=== PATIENT | male | born 1960 | race African-American/Black ===

== ENCOUNTER 2018-07-17 05:21 | Inpatient (IN) | payer OTHER ==
[2018-07-16 09:01] VITALS: BMI 36.3
[2018-07-17] VITALS (18 sets, daily range): BP systolic 110–156; BP diastolic 68–89; PULSE 74–97; RESP 11–25; Ht 180.3 cm; Wt 122.2 kg
[~2018-07-17] VITALS: Ht 180.3 cm; Wt 122.2 kg
[2018-07-17] MEDS ORDERED: CEFAZOLIN 2 GM/50 ML (PMX) 50 ML IVPB ONE (07:00)
[2018-07-17] MEDS ORDERED: LACTATED RINGER'S 1,000 ML IV* SCH (07:00)
--- NOTE | 2018-07-17 07:02 | HPN ---
Date/Time of Note Date/Time of Note DATE: 07/17/18 TIME: 07:02 Interval H&P Admission Note Pt. seen H&P reviewed: No system changes MAGNOLIA BENNETT PA-C Jul 17, 2018 07:02
[2018-07-17] MEDS ORDERED: BUPR-165 PO (07:04)
[2018-07-17] MEDS ORDERED: AMLO-147 PO (07:04)
[2018-07-17] MEDS ORDERED: FAMO20TA18 PO (07:05)
[2018-07-17] MEDS ORDERED: ASPI325T30 PO (07:05)
[2018-07-17] MEDS ORDERED: FENTAnyl 50 MCG/ML VIAL ONE ×2 (07:07→09:29)
[2018-07-17] MEDS ORDERED: MIDAZOLAM 1 MG/ML 2 ML INJ ONE (07:07)
[2018-07-17] MEDS ORDERED: ROCURONIUM 50 MG INJ ONE ×2 (07:07→08:32)
[2018-07-17] MEDS ORDERED: SUCCINYLCHOLINE CHLORIDE 100 MG/5 ML SYG IV ONE (07:07)
[2018-07-17] MEDS ORDERED: CEFAZOLIN 1 GM INJ ONE (07:07)
[2018-07-17] MEDS ORDERED: PROPOFOL 20 ML ONE (07:07)
[2018-07-17] MEDS ORDERED: NEOSTIGMINE 3 MG/3 ML SYRINGE ONE (07:07)
[2018-07-17] MEDS ORDERED: GLYCOPYRROLATE 0.4 MG INJ ONE (07:07)
[2018-07-17] MEDS ORDERED: ONDANSETRON 4 MG INJ ONE (07:08)
[2018-07-17] MEDS ORDERED: METOCLOPRAMIDE 10 MG INJ ONE (07:08)
[2018-07-17] MEDS ORDERED: DEXAMETHASONE 4 MG/ML 5 ML INJ ONE (07:08)
[2018-07-17] MEDS ORDERED: BISACODYL 10 MG SUPP PR PRN (07:30)
[2018-07-17] MEDS ORDERED: DIPHENHYDRAMINE 25 MG CAP PO PRN (07:30)
[2018-07-17] MEDS ORDERED: AL HYDROX/MG HYDROX/SIMETH 30 ML CUP PO PRN (07:30)
[2018-07-17] MEDS ORDERED: CEPASTAT LOZENGE MT PRN (07:30)
[2018-07-17] MEDS ORDERED: HYDROmorphONE 0.5 MG/0.5 ML SYG IV PRN (07:30)
[2018-07-17] MEDS: CEFAZOLIN 1 GM/50 ML (PMX) 50 ML IVPB SCH ×3 (07:30→23:21)
[2018-07-17] MEDS ORDERED: ONDANSETRON 4 MG INJ IV PRN ×2 (07:30→08:30)
[2018-07-17] MEDS ORDERED: NALOXONE (0.4 MG/ML) INJ IV PRN (07:30)
[2018-07-17] MEDS ORDERED: DIPHENHYDRAMINE 50 MG INJ IV PRN ×2 (07:30→08:30)
[2018-07-17] MEDS ORDERED: CYCLOBENZAPRINE 10 MG TAB PO PRN (07:30)
[2018-07-17] MEDS ORDERED: ACETAMINOPHEN 325 MG TAB PO PRN (07:30)
[2018-07-17] MEDS ORDERED: POLYMYXIN/BACITRACIN 1L IRRIG ONE (07:33)
[2018-07-17] MEDS ORDERED: BUPIVACAINE 0.5%/EPI (SDV) 30 ML INJ ONE (07:33)
[2018-07-17] MEDS ORDERED: SURGIFOAM POWDER 1 GM KIT ONE (07:33)
[2018-07-17] MEDS ORDERED: THROMBIN 5000 UNIT VIAL ONE (07:33)
[2018-07-17] MEDS ORDERED: HEPARIN 1000 UNITS/ML 10 ML INJ ONE (07:46)
[2018-07-17] MEDS ORDERED: PHENYLephrine 10 MG INJ ONE (08:08)
--- NOTE | 2018-07-17 08:11 | PREAC ---
Date/Time of Note Date/Time of Note DATE: 07/17/18 TIME: 08:04 Anesthesia Eval and Record Evaluation Time Pre-Procedure Interview DATE: 07/17/18 TIME: 08:04 Age 58 Sex male NPO: 8 hrs Preoperative diagnosis lumbar radiculopathy Planned procedure lumbar discectomy L4/L5 Past Medical History Past Medical History: Includes Cardio: HTN, Dyslipidemia Endo: Other (Pre Diabetes) Neuro: Seizure disorder, Other (Migraine GARCIA) GI: GERD Psych: Depression Surgery & Anesthesia Issues No known issue Meds Anticoagulation: No Beta Chani within 24 hr: Yes Reported Medications Aspirin* (Aspirin*) 325 Mg Tablet, 325 MG PO DAILY, TAB 07/17/18 Famotidine* (Famotidine*) 20 Mg Tablet, 20 MG PO BID, #60 TAB 07/17/18 Amlodipine Besylate* (Amlodipine Besylate*) 10 Mg Tablet, 10 MG PO DAILY, #30 TAB 07/17/18 Bupropion Hcl* (Wellbutrin SR*) 150 Mg Tablet.sa, 150 MG PO BID, TAB.SA 07/17/18 Current Medications Lactated Ringer's 1,000 ml @ 0 mls/hr Q0M IV* ; Start 07/17/18 at 07:00; Stop 07/17/18 at 16:00 Potassium Chloride/Dextrose/ Sod Cl 1,000 ml @ 100 mls/hr Q10H IV ; Start 07/17/18 at 07:02 Acetaminophen/ Hydrocodone Bitart ([place] (10/325)) 1 tab Q4H PRN PO .PAIN 1-5; Start 07/18/18 at 09:30 Acetaminophen/ Hydrocodone Bitart ([place] (10/325)) 2 tab Q4H PRN PO .PAIN 6-10; Start 07/18/18 at 09:30 Hydromorphone HCl (Dilaudid) 0.2 mg Q1H PRN IV .BREAKTHROUGH PAIN; Start 07/17/18 at 07:30 Cefazolin Sodium 50 ml @ 100 mls/hr Q8H IVPB ; Start 07/17/18 at 07:30; Stop 07/17/18 at 23:59 Ondansetron HCl (Zofran Inj) 4 mg Q6H PRN IV NAUSEA/VOMITING; Start 07/17/18 at 07:30 Bisacodyl (Dulcolax Supp) 10 mg DAILY PRN [place] .CONSTIPATION; Start 07/17/18 at 07:30 Docusate Sodium (Colace) 100 mg BID PO ; Start 07/17/18 at 09:00 Al Hydrox/Mg Hydrox/Simethicone (Mag-Al Plus) 15 ml Q6H PRN PO . CONSTIPATION/DYSPEPSIA; Start 07/17/18 at 07:30 Acetaminophen (Tylenol Tab) 650 mg Q4H PRN PO GARCIA OR TEMP GREATER THAN 101.3F; Start 07/17/18 at 07:30 Cyclobenzaprine HCl (Flexeril) 10 mg TID PRN PO .MUSCLE SPASMS; Start 07/17/18 at 07:30 Phenol (Cepastat Lozenge) 1 lozenge PRN PRN MT .SORE THROAT; Start 07/17/18 at 07:30 Diphenhydramine HCl (Benadryl) 25 mg Q6H PRN PO .ITCHING; Start 07/17/18 at 07:30 Diphenhydramine HCl (Benadryl) 25 mg Q6H PRN IV .ITCHING; Start 07/17/18 at 07:30 Naloxone HCl (Narcan) 0.2 mg Q2M PRN IV .RR 8 BREATHS/MIN OR LESS; Start 07/17/18 at 07:30 Hydromorphone HCl (Dilaudid BIODIESEL PROCESS CONTROL TECHNICIAN) BIODIESEL PROCESS CONTROL TECHNICIAN to be started in PACU Q4PCA IV ; Start 07/17/18 at 07:30; Stop 07/18/18 at 10:00 Miscellaneous Information 1. Hold BIODIESEL PROCESS CONTROL TECHNICIAN at 1,000... BIODIESEL PROCESS CONTROL TECHNICIAN IV ; Start 07/17/18 at 07:30; Stop 07/18/18 at 10:00 Meds reviewed: Yes Allergies Coded Allergies: No Known Allergy (Unverified , 07/17/18) Allergies Reviewed: Yes Labs/Studies Labs Reviewed: Reviewed by anesthesiologist test: N/A Studies: ECG, CXR Pre-procedure Exam Airway: Adequate mouth opening, Adequate thyromental dist Mallampati: Mallampati I Teeth: Normal (partial removed) Lung: Normal Heart: Normal ASA Physical Status ASA physical status: 3 Emergency: None Planned Anesthetic General/MAC: ETT Planned Pain Management Local by surgeon Pre-operative Attestations Prior to commencing anesthesia and surgery, the patient was re-evaluated, there was verification of: *The patient's identity *The results of appropriate recent lab work and preoperative vital signs *The above evaluation not changing prior to induction *Anesthetic plan, risk benefits, alternative and complications discussed with patient/family; questions answered; patient/family understands, accepts and wishes to proceed. Nara Mckoy Jul 17, 2018 08:11
[2018-07-17] MEDS ORDERED: LABETALOL HCL 20MG INJ IV PRN (08:30)
[2018-07-17] MEDS ORDERED: HYDROmorphONE 1 MG/5 ML IV SYRINGE IV PRN (08:30)
[2018-07-17] MEDS ORDERED: MEPERIDINE 25 MG INJ IV PRN (08:30)
[2018-07-17] MEDS ORDERED: morphine (1 MG/ML) 10ML SYRINGE IV PRN (08:30)
[2018-07-17] MEDS ORDERED: METOCLOPRAMIDE 10 MG INJ IV PRN (08:30)
[2018-07-17] MEDS ORDERED: hydrALAzine 20 MG INJ IV PRN (08:30)
[2018-07-17] MEDS ORDERED: FENTAnyl 50 MCG/ML VIAL IV PRN (08:30)
[2018-07-17] MEDS ORDERED: OXYCODONE/ACETAMINOPHEN (5/325) TAB PO PRN (08:30)
[2018-07-17] MEDS ORDERED: HALOPERIDOL 5 MG INJ IV PRN (08:30)
[2018-07-17] MEDS ORDERED: LORAZEPAM 2 MG INJ IV PRN (08:30)
[2018-07-17] MEDS ORDERED: PROCHLORPERAZINE 10 MG INJ IV PRN (08:30)
[2018-07-17] MEDS ORDERED: BUPIVACAINE 0.25% (MPF) 30 ML INJ ONE (09:22)
--- NOTE | 2018-07-17 09:54 | SIPON ---
Date/Time of Note Date/Time of Note DATE: 07/17/18 TIME: 09:52 Operative Report Preoperative Diagnosis Lumbar stenosis Postoperative Diagnosis Lumbar stenosis Operation/Procedure Performed Lumbar decompression Surgeon see signature line residential real estate assistant Raven Munoz Anesthesia: general Estimated blood loss: 10 - 50 ml's Transfusion Required none Specimen L4-5 disc Grafts/Implants none Complications none JASON WU MD Jul 17, 2018 09:54
[2018-07-17] MEDS: HYDROmorphONE 0.2 MG/ML PCA IV SCH (10:27)
[2018-07-17] MEDS: DOCUSATE SODIUM 100 MG CAP PO SCH ×2 (10:32→21:18)
--- NOTE | 2018-07-17 12:59 | OPR ---
DATE OF OPERATION: 07/17/2018 PREOPERATIVE DIAGNOSES: 1. History of previous left L5-S1 microdiskectomy. 2. Body mass index 38. 3. 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 4. Right L4-5 disk extrusion. 5. Lumbar radiculopathy. POSTOPERATIVE DIAGNOSES: 1. History of previous left L5-S1 microdiskectomy. 2. Body mass index 38. 3. 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 4. Right L4-5 disk extrusion. 5. Lumbar radiculopathy. OPERATION PERFORMED: 1. Right L3-4 hemilaminotomy, partial medial facetectomy, and foraminotomy with removal of extraforaminal intraspinal cyst. 2. Right L4-5 hemilaminotomy, partial medial facetectomy, and foraminotomy with right L4-5 microdiskectomy. 3. Use of operative microscope. 4. Lateral localizing film x2. 5. Intraoperative neuromonitoring. PRIMARY SURGEON: Pa Stovall MD APPLE PEELER OPERATOR: Raven Munoz PA-C NEED FOR HUMIDIFIER MAINTENANCE WORKER: During this spinal surgical procedure, my pediatric physical therapy assistant was used to retract and protect the spinal nerves and dural sac. My pediatric physical therapy assistant also employed the suction catheters to evacuate blood from the surgical field to improve visualization of the neural structures. The pediatric physical therapy assistant was medically necessary to facilitate the completion of the surgery in a safe and expeditious manner. State of [place] regulations, as well as hospital bylaws, preclude the use of non-licensed health care personnel, such as operating room technicians, to perform these functions. FINDINGS: Neuromonitoring at the start of the case revealed right L3 amplitude down 40%, right L4 down 40%, right L5 down 30%, the end the case, nerve signals returned to normal. The patient had an extruded fragment at the L4-5 level, in addition to a chronic herniation with calcification. This resulted in stenosis. At L3-4 patient had thickening of ligamentum flavum with a interligamentum cyst which was intraspinal and extradural. ESTIMATED BLOOD LOSS: 50 mL. DRAINS: None. SPECIMENS: L4-5 disk spaces. COMPLICATIONS OF PROCEDURES: None. ANESTHESIOLOGIST: Ean. TYPE OF ANESTHESIA: General. INDICATIONS FOR PROCEDURE: This 58-year-old gentleman with right lumbar radiculopathy failed nonoperative measures, therefore I recommended that he undergo the above procedure. Preoperatively, we discussed risks, benefits, alternatives. He understood and wished to proceed. DESCRIPTION OF PROCEDURE IN DETAIL: The patient was identified in preoperative holding area, given Ancef antibiotic, taken to the operating room, where he was successfully placed under general anesthesia. SCDs were applied. Remote intraoperative neuromonitoring was performed by Dr. Guerrero from 0642 to 0945 hours to include SSEP, MEP, and EMG performed by [facility]. The patient was placed on the operating table in prone position over a Garland frame. All bony prominences were well padded. The back was then prepped and draped in usual fashion. Spinal needles were placed and lateral localizing films obtained to confirm the correct levels. Once this was confirmed, I injected the skin, subcutaneous tissue, and paraspinal musculature with 0.25% Marcaine and epinephrine. The patient's previous incision was more toward the left, rather than being on midline, and therefore, I elected to make a new incision over the L3-4 and L4-5 levels. I incised the skin down to the dorsal fascia. The patient had approximately 4 cm of adipose tissue to get to the spinous process. I then subperiosteally dissected the right L4 and L3 lamina. Leanna retractor was placed. Kerrison was placed under the L4 lamina. Repeat lateral films obtained to confirm the correct levels. Once this was confirmed, microscope was brought in. At L4-5 I used a high speed bur and Kerrison punch to perform a right hemilaminotomy and partial medial facetectomy. Ligamentum flavum was then sharply dissected. I then identified the traversing nerve root which my pediatric physical therapy assistant retracted. I then identified the extruded fragment. I made an incision and removed extruded fragment. The patient also had a calcified extrusion which was chronic. I used a Kerrison punch followed by down pushing curets to perform this diskectomy. I then entered the disk space and completed the diskectomy. I then turned my attention to the L3-4 level. Here a right-sided hemilaminotomy was performed. Ligamentum flavum was quite thick. There was a cyst within the ligamentum flavum. This was an intraspinal but extradurally located and I removed the cyst with the ligamentum flavum. Once this was done, I examined the annulus. Although there was a bulge there was no extrusion. Therefore, I elected not to perform a diskectomy. At this point, all nerve signals returned to normal. Hemostasis achieved with bipolar cautery and Surgifoam. Valsalva was performed and there was no leak of CSF. The wound was irrigated. I injected plain Marcaine. I then removed the retractors and closed the deep fascia with #1 Vicryl stitch. I closed subcutaneous tissue with a 2-0 Vicryl stitch. Microscope was taken off the field. A 4-0 Monocryl closure was then performed. Dermabond and sterile dressings were then applied. The patient was then awakened from anesthesia and taken to the recovery room in stable condition. Lap, sponge, and instrument counts were correct x2. There were no apparent complications during the procedure. The patient will be admitted [facility] for routine postoperative care to include pain, neurovasc checks, antibiotics, and physical therapy. Dictated By: PA CASTANEDA/COURT Conf#: [id number] DID#: [id number] [facility]
[2018-07-17] MEDS: D5W-0.45 NACL + KCL 20 MEQ 1,000 ML IV SCH ×2 (14:26→17:02)
--- NOTE | 2018-07-17 18:01 | PAC ---
Date/Time of Note Date/Time of Note DATE: 07/17/18 TIME: 18:00 Post-Anesthesia Notes Post-Anesthesia Note Last documented vital signs Vital Signs Date Temp Pulse Resp B/P (MAP) Pulse Ox O2 O2 Flow FiO2 Time Delivery Rate 07/17/18 Nasal 2.0 16:20 Cannula 07/17/18 98.3 11:39 07/17/18 82 11 136/71 97 10:51 (92) Activity: WNL Respiratory function: WNL Cardiovascular function: WNL Mental status: Baseline Pain reasonably controlled: Yes Hydration appropriate: Yes Nausea/Vomiting absent: Yes Comments patient doing well, d/c to floor Nara Mckoy Jul 17, 2018 18:01
--- NOTE | 2018-07-17 19:30 | CONS ---
DATE OF ADMISSION: 07/17/2018 DATE OF CONSULTATION: TYPE OF CONSULTATION: Medical. Thank you, Dr. Stovall, for asking me to participate in medical management of this patient. REASON FOR CONSULTATION: To manage the patient's hypertension, depression, migraine headaches. HISTORY OF PRESENT ILLNESS: This 58-year-old man is now postop a lumbar spine surgery by Dr. Jo combs. The patient was having right lumbar radiculopathy due to a previous injury at work. He was havi ng low back pain with radiation down his right leg with numbness. The patient underwent a right L3 t o L4 hemilaminotomy, partial medial facetectomy and foraminotomy with removal of extraforaminal intra spinal cyst. He also underwent a right L4 to L5 hemilaminotomy, partial medial facetectomy and harmeet inotomy with a right L4 to L5 microdiskectomy. The patient is doing well. He is awake and alert. H is back pain is under good control on current medication. The patient does have a history of hyperte nsion and did take his blood pressure medicine this morning preoperatively. PAST MEDICAL HISTORY: Remarkable for benign prostatic hypertrophy, depression, gastroesophageal refl ux disease, hypertension, migraine headaches, prediabetes. PAST SURGICAL HISTORY: Laminectomy and tonsillectomy. FAMILY HISTORY: Includes asthma, COPD, depression, type 2 diabetes mellitus, heart disease, high blo od pressure, hyperlipidemia and thyroid cancer. SOCIAL HISTORY: The patient has been smoking. He does drink alcohol. CURRENT MEDICATIONS: Includes the followin. Amlodipine 10 mg a day, which he took this morning. 2. Aspirin which he discontinued preoperatively. 3. Wellbutrin 150 mg twice a day. 4. Famotidine 20 mg twice a day. 5. Meloxicam as needed for pain which he discontinued preoperatively. PHYSICAL EXAMINATION: GENERAL: At this time reveals a well-developed man in no apparent distress. VITAL SIGNS: Temperature 98.3, pulse of 82, respirations 11, blood pressure 136/71, O2 saturation 97 % on 2-liter nasal cannula. HEENT: Head is normocephalic. Eyes: Extraocular muscles are intact. Nose and mouth are normal. NECK: Supple. No neck vein distention. LUNGS: Clear to auscultation. HEART: Regular rate, rhythm. No murmurs, gallops or rubs. ABDOMEN: Soft, nontender. No masses or megaly. EXTREMITIES: No peripheral edema. IMPRESSION: This patient is now postop a lumbar spine surgery. He is doing well. His vital signs a re stable and he is afebrile. He has no chest pain or shortness of breath. I will follow the patien t and manage his hypertension, depression and migraine headaches. PLAN: 1. Resume some routine medications. 2. Check labs in the morning. 3. Postop lumbar spine surgery protocol. 4. I will follow the patient along with you. Dictated By: AMPARO WAGNER MD ND/NTS Conf#: [id number] DID#: [id number] CC: JASON STOVALL MD; ROMINA DAVEY MD;*[facility]*
[2018-07-17] MEDS: BUPROPION (SR) 150 MG TAB PO SCH (21:18)
[2018-07-17] MEDS: FAMOTIDINE 20 MG TAB PO SCH (21:18)
[2018-07-18 01:36] VITALS: BP 133/80; PULSE 81; RESP 18
[2018-07-18] MEDS: D5W-0.45 NACL + KCL 20 MEQ 1,000 ML IV SCH ×2 (03:02→13:02)
[2018-07-18] MEDS: HYDROmorphONE 0.2 MG/ML PCA IV SCH (04:24)
[2018-07-18 07:17] VITALS: BP 157/99; RESP 18
[2018-07-18] MEDS: FAMOTIDINE 20 MG TAB PO SCH (08:21)
[2018-07-18] MEDS: BUPROPION (SR) 150 MG TAB PO SCH (08:21)
[2018-07-18] MEDS: DOCUSATE SODIUM 100 MG CAP PO SCH (08:22)
[2018-07-18] MEDS ORDERED: HYDROCODONE/APAP (10/325) TAB PO PRN ×3 (08:30→09:30)
[2018-07-18] MEDS ORDERED: HYDROCODONE/APAP (10/325) TAB PO SCH (08:30)
[2018-07-18] MEDS ORDERED: AMLODIPINE 10 MG TAB PO SCH (09:00)
--- NOTE | 2018-07-18 12:11 | CONS ---
Assessment/Plan Assessment/Plan Hospital Course (Demo Recall) 1. This patient is now 1 day postop a lumbar spine surgery. He is doing well. His vital signs are stable except for slightly elevated blood pressure. He is afebrile. 2. Hypertension. His blood pressure is slightly elevated today. He is on antihypertensive medication. Will continue to monitor his blood pressure and add medication if needed. 3. He will participate in physical therapy as tolerated. Consultation Date/Type/Reason Admit Date/Time Jul 17, 2018 at 05:21 Initial Consult Date Type of Consult Medicine Date/Time of Note DATE: 07/18/18 TIME: 12:08 24 HR Interval Summary Free Text/Dictation This patient is being seen in medical follow-up. He is awake and alert. He seems to be comfortable. He has been up with physical therapy. Constitutional: no complaints, improved Exam/Review of Systems Exam Vitals Vital Signs Date Temp Pulse Resp B/P (MAP) Pulse Ox O2 O2 Flow FiO2 Time Delivery Rate 07/18/18 18 08:37 07/18/18 97.9 157/99 95 Room Air 07:17 (118) 07/18/18 81 01:36 07/17/18 2.0 20:00 Intake and Output 07/17/18 07/17/18 07/18/18 1515:00 23:00 07:00 IntakeIntake Total 1120 ml 1750 ml OutputOutput Total 75 ml BalanceBalance 1045 ml 1750 ml Constitutional: alert, oriented, well developed Neck: supple, non-tender Respiratory: clear to auscultation, normal air movement Cardiovascular: regular rate and rhythm Gastrointestinal: soft, non-tender Musculoskeletal: nl extremities to inspection Results Result Diagram: 07/18/18 0438 07/18/18 0438 Results 24hrs Laboratory Tests Test 07/18/18 04:38 07/18/18 07:24 White Blood Count 11.7 H Red Blood Count 4.09 L Hemoglobin 11.9 L Hematocrit 36.9 L Mean Corpuscular Volume 90.2 Mean Corpuscular Hemoglobin 29.1 Mean Corpuscular Hemoglobin Concent 32.2 Red Cell Distribution Width 14.3 Platelet Count 355 Mean Platelet Volume 9.1 Immature Granulocytes % 0.400 Neutrophils % 75.2 Lymphocytes % 14.6 L Monocytes % 9.5 Eosinophils % 0.0 Basophils % 0.3 Nucleated Red Blood Cells % 0.0 Immature Granulocytes # 0.050 H Neutrophils # 8.8 H Lymphocytes # 1.7 Monocytes # 1.1 H Eosinophils # 0.0 Basophils # 0.0 Nucleated Red Blood Cells # 0.0 Sodium Level 138 Potassium Level 4.9 Chloride Level 97 Carbon Dioxide Level 26 Anion Gap 15 H Blood Urea Nitrogen 24 H Creatinine 1.08 Est Glomerular Filtrat Rate mL/min > 60 Glucose Level 123 Calcium Level 9.1 Magnesium Level 1.9 Lab Scanned Report REFERENCE LAB Medications Medication Current Medications Potassium Chloride/Dextrose/ Sod Cl 1,000 ml @ 100 mls/hr Q10H IV Last adm inistered on 07/18/18at 03:02; Admin Dose 100 MLS/HR; Start 07/17/18 at 07:02 Acetaminophen/ Hydrocodone Bitart ([place] (10/325)) 2 tab Q4H PRN PO .PAIN 6-10; Start 07/18/18 at 09:30 Hydromorphone HCl (Dilaudid) 0.2 mg Q1H PRN IV .BREAKTHROUGH PAIN; Start 07/17/18 at 07:30 Ondansetron HCl (Zofran Inj) 4 mg Q6H PRN IV NAUSEA/VOMITING; Start 07/17/18 at 07:30 Bisacodyl (Dulcolax Supp) 10 mg DAILY PRN [place] .CONSTIPATION; Start 07/17/18 at 07:30 Docusate Sodium (Colace) 100 mg BID PO Last administered on 07/18/18at 08:22; Admin Dose 100 MG; Start 07/17/18 at 09:00 Al Hydrox/Mg Hydrox/Simethicone (Mag-Al Plus) 15 ml Q6H PRN PO .CONSTIPATION/DYSPEPSIA; Start 07/17/18 at 07:30 Acetaminophen (Tylenol Tab) 650 mg Q4H PRN PO GARCIA OR TEMP GREATER THAN 101.3F; Start 07/17/18 at 07:30 Cyclobenzaprine HCl (Flexeril) 10 mg TID PRN PO .MUSCLE SPASMS; Start 07/17/18 at 07:30 Phenol (Cepastat Lozenge) 1 lozenge PRN PRN [place] .SORE THROAT; Start 07/17/18 at 07:30 Diphenhydramine HCl (Benadryl) 25 mg Q6H PRN PO .ITCHING; Start 07/17/18 at 07:30 Diphenhydramine HCl (Benadryl) 25 mg Q6H PRN IV .ITCHING; Start 07/17/18 at 07:30 Naloxone HCl (Narcan) 0.2 mg Q2M PRN IV .RR 8 BREATHS/MIN OR LESS; Start at 07:30 Amlodipine Besylate (Norvasc) 10 mg DAILY PO Last administered on 07/18/18 08:21; Admin Dose 10 MG; Start 07/18/18 at 09:00 Bupropion HCl (Wellbutrin Sr) 150 mg BID PO Last administered on 07/18/18 08:21; Admin Dose 150 MG; Start 07/17/18 at 21:00 Famotidine (Pepcid) 20 mg BID PO Last administered on 07/18/18 08:21; Admin Dose 20 MG; Start 07/17/18 at 21:00 Acetaminophen/ Hydrocodone Bitart ([place] (10/325)) 1 tab Q4H PRN PO .PAIN 1-5 Last administered on 07/18/18at 08:33; Admin Dose 1 TAB; Start 07/18/18 at 08:30 AMPARO WAGNER MD Jul 18, 2018 12:11
--- NOTE | 2018-07-18 14:46 | DS ---
Date/Time of Note Date/Time of Note DATE: 07/18/18 TIME: 14:46 Discharge Summary Admission/Discharge Info Admit Date/Time Jul 17, 2018 at 05:21 Discharge Date/Time jul 18 Discharge Diagnosis lumbar decompression Procedures lumbar decompression Hospital Course Patient was [facility] after undergoing the above procedure. His postoperative course was uncomplicated. By postoperative day 1 he was deemed stable for discharge with follow-up arranged with the undersigned Home Meds Reported Medications Aspirin* (Aspirin*) 325 Mg Tablet, 325 MG PO DAILY, TAB 07/17/18 Famotidine* (Famotidine*) 20 Mg Tablet, 20 MG PO BID, #60 TAB 07/17/18 Amlodipine Besylate* (Amlodipine Besylate*) 10 Mg Tablet, 10 MG PO DAILY, #30 TAB 07/17/18 Bupropion Hcl* (Wellbutrin SR*) 150 Mg Tablet.sa, 150 MG PO BID, TAB.SA 07/17/18 Primary Care Provider Not On Staff Doctor Pending Labs Laboratory Tests Test 07/18/18 04:38 07/18/18 07:24 White Blood Count 11.7 10^3/ul (4.8-10.8) Red Blood Count 4.09 10^6/ul (4.70-6.10) Hemoglobin 11.9 g/dl (14.0-18.0) Hematocrit 36.9 % (42.0-52.0) Mean Corpuscular Volume 90.2 fl (82.0-101.0) Mean Corpuscular Hemoglobin 29.1 pg (29.0-33.0) Mean Corpuscular 32.2 g/dl (32.0-37.0) Hemoglobin Concent Red Cell Distribution Width 14.3 % (11.5-14.5) Platelet Count 355 10^3/UL (140-415) Mean Platelet Volume 9.1 fl (7.4-10.4) Immature Granulocytes % 0.400 % (0.001-0.429) Neutrophils % 75.2 % (39.0-77.0) Lymphocytes % 14.6 % (15.0-51.0) Monocytes % 9.5 % (0.0-11.0) Eosinophils % 0.0 % (0.0-7.0) Basophils % 0.3 % (0.0-2.0) Nucleated Red Blood Cells % 0.0 /100WBC (0.0-0.0) Immature Granulocytes # 0.050 10^3/ul (0.0-0.031) Neutrophils # 8.8 10^3/ul (1.6-7.5) Lymphocytes # 1.7 10^3/ul (0.8-2.9) Monocytes # 1.1 10^3/ul (0.3-0.9) Eosinophils # 0.0 10^3/ul (0.0-0.5) Basophils # 0.0 10^3/ul (0.0-0.1) Nucleated Red Blood Cells # 0.0 10^3/ul (0.0-0.0) Sodium Level 138 mmol/L (135-144) Potassium Level 4.9 mmol/L (3.5-5.1) Chloride Level 97 mmol/L (97-110) Carbon Dioxide Level 26 mmol/L (21-31) Anion Gap 15 (5-13) Blood Urea Nitrogen 24 mg/dl (7-20) Creatinine 1.08 mg/dl (0.61-1.24) Est Glomerular Filtrat > 60 mL/min (>60) Rate mL/min Glucose Level 123 mg/dl (70-220) Calcium Level 9.1 mg/dl (8.4-10.2) Magnesium Level 1.9 mg/dl (1.7-2.5) Lab Scanned Report REFERENCE LAB [id number] JASON WU MD Jul 18, 2018 14:46
[2018-07-18 14:55] VITALS: BP 133/85; PULSE 91; RESP 18
== END 2018-07-18 19:00 | disposition home or self-care (01) | DRG 520 ==
LOC: REC 05:21 → EDSTATUS 07:00 → MS1 11:15
PROVIDERS: ADMIT Specialist; ATTEND Specialist
PROC: 0SB20ZZ Excision of Lumbar Vertebral Disc, Open Approach (ICD-10-PCS; 2018-07-17)
PROC: 01NB0ZZ Release Lumbar Nerve, Open Approach (ICD-10-PCS; principal; 2018-07-17 07:00)
DX: M51.16 Intervertebral disc disorders with radiculopathy, lumbar region (principal); I10 Essential (primary) hypertension; F32.9 Major depressive disorder, single episode, unspecified
CPT/HCPCS: 72020; 80048; 83735; 85025; 86999; 88304; 97110; 97116; 97161; 97530; J0690; J1100; J1170; J1644; J2250; J2405; J2710; J2765; J3010; J3480